=== PATIENT | female | born 1935 | race Caucasian/White ===

== ENCOUNTER 2016-08-30 21:49 | Emergency (ER) | payer OTHER ==
--- NOTE | 2016-08-30 22:05 | DIAGNOSTIC IMAGING REPORT ---
PROCEDURE: CT HEAD WITHOUT CONTRAST INDICATION: STROKE TECHNIQUE: Noncontrast axial images with sagittal and coronal reformations. COMPARISON: None. FINDINGS: There is evidence of mild to moderate old small vessel disease of the basal ganglia and white matter of the cerebral hemispheres. Brain and ventricles are otherwise normal. No evidence of an acute process or hemorrhage. Sinuses and mastoids are normal. IMPRESSION: 1. 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 2. Otherwise negative head CT. 3. Findings discussed with Dr. Tom Samayoa at [address] scans at this facility use dose modulation, iterative reconstruction, and/or weight-based dosing when appropriate to reduce radiation dose to as low as reasonably achievable.
--- NOTE | 2016-08-30 22:55 | ED ORDER SUMMARY ---
..... Patient: YAIMA SIMEON [facility] VisitID: [id number] [address] [place], [place] [id number] 80y, F Registration Date/Time: 08/30/2016 ORDER SHEET Weight: 75.7 kg (measured) Allergies: No Known Drug Allergy GENERAL ORDERS: CT Head wo Cont Urgent (21:52 08/30/2016 AMcQuoid ER Tech1 verbal order read back to Elliot OMALLEY) (Ack 21:53 AMcQuoid ER Tech1) (22:40 RFay) Chest 1V Urgent (:58 08/30/2016 Elliot OMALLEY) (Ack 22:00 AMcQuoid ER Tech1) (22:39 RFay) Retort Firer (Continuous) (:58 08/30/2016 Elliot OMALLEY) (Ack 21:59 AMcQuoid ER Tech1) (22:14 HSoule) CBC w Diff Urgent (21:58 08/30/2016 Elliot OMALLEY) (Ack 22:00 AMcQuoid ER Tech1) (0:49 HSoule) CMP Urgent (21:58 08/30/2016 Elliot OMALLEY) (Ack 22:00 AMcQuoid ER Tech1) (0:49 HSoule) UA-Culture if indicated Urgent (:58 08/30/2016 Elliot OMALLEY) (Ack 22:00 AMcQuoid ER Tech1) (0:49 HSoule) PT with INR Urgent (21:58 08/30/2016 Elliot OMALLEY) (Ack 22:00 AMcQuoid ER Tech1) (0:49 HSoule) PTT Urgent (:58 08/30/2016 Elliot OMALLEY) (Ack 22:00 AMcQuoid ER Tech1) (0:49 HSoule) D-Dimer Urgent (:58 08/30/2016 Elliot OMALLEY) (Ack 22:00 AMcQuoid ER Tech1) (0:49 HSoule) Amylase Urgent (21:08/30/2016 Elliot OMALLEY) (Ack 22:00 AMcQuoid ER Tech1) (0:49 HSoule) Lipase Urgent (:08/30/2016 Elliot OMALLEY) (Ack 22:00 AMcQuoid ER Tech1) (0:49 HSoule) BNP Urgent (21:58 08/30/2016 Elliot OMALLEY) (Ack 22:00 AMcQuoid ER Tech1) (0:49 HSoule) CPK Urgent (21:58 08/30/2016 Elliot OMALLEY) (Ack 22:00 AMcQuoid ER Tech1) (0:50 HSoule) Troponin-I Urgent (:58 08/30/2016 Elliot OMALLEY) (Ack 22:00 AMcQuoid ER Tech1) (0:49 HSoule) Oxygen (2 L/min) (NC) (21:58 08/30/2016 Elliot OMALLEY) (Ack 21:59 AMcQuoid ER Tech1) (22:14 HSoule) Pulse oximeter (:58 08/30/2016 Elliot OMALLEY) (Ack 21:59 AMcQuoid ER Tech1) (22:14 HSoule) EKG - ER Stat (:58 08/30/2016 Elliot OMALLEY) (Ack 22:00 AMcQuoid ER Tech1) (22:14 HSoule) MEDICATION ORDERS: IV FLUIDS: IV Saline Lock (:58 08/30/2016 Elliot OMALLEY) (22:14 HSoule) TPA Protocol (Stroke) 0.9 mg/kg (HIGH ALERT MEDICATION, NOW, Stroke 0.9 mg/kg, Bolus-10% of total dose given over 1min, Infusion-remaining 90% of total dose given over 59) (23:05 08/30/2016 Elliot OMALLEY) (23:10 HSoule) ORDER SHEET NOTES: [Electronically signed by Shannon Roman (00:50 08/31/2016)] [Electronically signed by Tom Samayoa MD (21:11 09/02/2016)] [Electronically locked/signed by Shannon Roman (00:50 08/31/2016)]
--- NOTE | 2016-08-30 22:55 | ED NURSING NOTES ---
Clinical Report - Nurses [facility] [address] [place] [address] 08/30/2016 21:51 Patient: YAIMA SIMEON TRIAGE Triage time 21:52 Aug 30 2016. Acuity: LEVEL 2. Chief Complaint: ALTERED MENTAL STATUS and (Fall). CHE COMA SCORE: [place] Coma Scale: 14- eyes open spontaneously (4); best verbal response- disoriented (4); best motor response- obeys commands (6). --21:55 Shannon Roman 22:02 08/30/16. BP: 173/77. HR: 67. RR: 22. O2 saturation: 95% on room air. Temp: 97.8 F (oral). Pain level now: cannot qualify. --22:05 Shannon Roman. Height/Length: 67 inches Per Patient. --22:02 Shannon Roman. Weight: 75.7 kg measured. BMI: 26.2. --22:05 Shannon Roman. Medications Metoprolol Tartrate Oral. --21:54 Shannon Roman Levothyroxine Sodium Oral. --21:54 Shannon Roman Lisinopril Oral. --21:55 Shannon Roman Cartia XT Oral. --21:55 Shannon Roman Losartan Potassium Oral. --22:11 Shannon Roman. Medication/allergy information source: EMS. --21:57 Shannon Roman. Allergies No Known Drug Allergy. --21:55 Shannon Roman. History Arrived by EMS. Historian: EMS and family. This started just prior to arrival. Patient was last known well (35 min ago). ( Patient family called EMS and reported the patient had an unwitnessed fall. Family reports patient is normally alert and oriented but that after the fall she became confused and had difficulty speaking.). --21:55 Shannon Roman Treatment INFECTION CONTROL PRACTITIONER: See EMS report. EMS treatment INFECTION CONTROL PRACTITIONER verbally communicated. See EMS report. Finger stick glucose performed (116). BP: 170 / 82. HR: 82. RR: 18. O2 saturation: 97 % room air. --21:57 Shannon Roman Primary physician (blanco). --21:57 Shannon Roman PAST MEDICAL HX: Immunizations: status is unknown. The patient is post-menopausal. SOCIAL HX: No drug use. No infectious disease exposure. ABUSE ASSESSMENT: No report of abuse. NUTRITIONAL RISK ASSESSMENT: The nutritional risk assessment revealed no deficiencies. FUNCTIONAL ASSESSMENT: Functional assessment: no impairments noted. LEARNING NEEDS ASSESSMENT: The learning needs assessment revealed no barriers. FALL RISK ASSESSMENT: Fall risk assessment completed. Risk factors identified include patient age greater than 65 years and impairment of cognition. Fall interventions initiated. Patient placed on stretcher. Side rails up x2. Brakes on Bed in low position. Patient visible from nurses' station. Family at bedside. Call light in reach of patient. Instructed not to get up without assistance. SKIN INTEGRITY ASSESSMENT: Skin integrity risk assessment completed. No skin integrity risk identified. --22:01 Shannon Roman SOCIAL HX: Never smoker. Occasional alcohol use. No drug use. No infectious disease exposure. ABUSE ASSESSMENT: No report of abuse. --22:02 Shannon Roman. PROBLEMS: Thyroid Disease. Hypertension. --21:56 Shannon Roman Atrial Fibrillation. --22:12 Shannon Roman. Interventions ID band on patient. To treatment room. --21:55 Shannon Roman. PHYSICAL ASSESSMENT To room via stretcher. Patient gowned. GENERAL / NEURO / PSYCH: Alert. The patient is disoriented to place and time. Patient's speech is abnormal (difficulty articulating, able to form one word responses). Patient appears neat and clean. RESPIRATORY: Respirations not labored. CVS: Normal sinus rhythm noted. GI / : Abdomen soft and nontender. SKIN: Skin is warm and dry. --22:07 Shannon Roman GENERAL / NEURO / PSYCH: [place] Com[place] Scale: 13- eyes open spontaneously (4); best verbal response- inappropriate speech (3); best motor response- obeys commands (6). Abnormal verbal response (expressive aphasia, dysarthria). HEENT: Pupils equal, round and reactive to light. --23:13 Shannon Roman 23:10 07/17/17. GENERAL / NEURO / PSYCH: Abnormal verbal response (inappropriate, expressive aphasia, dysarthria). Moves all extremities. No motor deficit. No sensory deficit. HEENT: Pupils equal, round and reactive to light. --00:49 JessieShannon schmitz. NURSING PROGRESS NOTES Patient transported to CT by stretcher with tech. (21:55 Aug 30 2016). --21:55 Shannon Roman Patient returned from CT by stretcher with tech. (:Aug 30 2016). --22:02 JessieJohn Paul schmitznah Patient gowned. Reassurance given to the patient and patient's family. Two patient identifiers checked. Call light placed in reach. Side rails up x 1. Bed placed in lowest position. Brakes of bed on. Patient ready for evaluation- chart flagged and ED physician notified. --22:02 JessieJohn PaulShannon <<STRICKEN ENTRY-- 22:08/30/2016 Site #1 started via IV in the right antecubital space with an 18g angiocath; one attempt. Blood drawn: rainbow set. Labeled in the presence of the patient and sent to the lab. Saline lock flushed with 10 mL saline. --22:07 JessieJohn PaulShannon --END STRIKE>> Correction. --22:08 JessieJohn PaulShannon 22:08/30/2016 Site #2 started via IV in the right antecubital space with an 20g angiocath, with aseptic technique; one attempt. Saline lock flushed with 10 mL saline. --22:08 JesseiJohn PaulShannon 22:08/30/2016 Site #1 started via IV in the left antecubital space with an 18g angiocath; one attempt. Blood drawn: rainbow set. Labeled in the presence of the patient and sent to the lab. Saline lock flushed with 10 mL saline. --22:08 Jessie Shannon 22:08 08/30/16. BP: 173/70. HR: 65. RR: 16. O2 saturation: 96% on nasal cannula at 2 liters/minute. --22:10 Shannon Roman ( Patient repeating words when she is asked questions. Writing RN asking patient if she is having difficulty finding the correct words, she states "yes".). --22:13 Shannon Roman Patient ID band checked for patient name and birthdate: patient confirmed. Blood samples drawn from the right antecubital space peripheral IV site with Vacutainer by nurse ; labeled in presence of the patient and sent to lab: rainbow set: cardiac enzymes (1st set). Additional blood sent to lab. Line flushed with 10 mL normal saline post blood draw. --22:14 Shannon Roman EKG time: (22:15 Aug 30 2016). EKG was ordered, performed by a tech and shown to the ED physician. --22:16 Shannon Roman ( Patient family and provider discussing plan of care.). --22:24 Shannon Roman 22:24 08/30/16. BP: 160/74. HR: 59. RR: 20. O2 saturation: 100% on room air. --22:25 Shannon Roman 22:27 08/30/16. BP: 157/63 taken on the right arm. HR: 62. RR: 18. O2 saturation: 98% on nasal cannula at 2 liters/minute. --22:28 Shannon Roman 22:52 08/30/16. BP: 161/70. HR: 68. RR: 20. O2 saturation: 100% on room air. --22:54 Shannon Roman ( Patient family and patient agreeable to TPA administration.). --22:55 Shannon Roman 23:00 08/30/16. BP: 154/68. HR: 75. RR: 18. O2 saturation: 100% on room air. --23:02 Shannon Roman <<STRICKEN ENTRY-- 23:03 08/30/2016 Started 68 mg of TPA Protocol (Stroke) IVPB in bag #1 68 mL; bolus of 6.8 mg over 1 minute(s) then at 61.2 mL/hr over 60 minute(s) via site #1 via IV pump. Allergies verified and confirmed 5 rights. IV patency established. IV site checked: no pain, redness, or swelling. IV flushed thoroughly pre- and post-medication administration. --23:10 Shannon Roman --END STRIKE>> Correction. --23:21 Shannon Roman 23:11 08/30/16. BP: 158/73. HR: 66. RR: 18. O2 saturation: 98% on nasal cannula at 2 liters/minute. --23:12 Shannon Roman RESPIRATORY: No respiratory distress. SKIN: Skin is warm and dry. --23:21 Shnanon Roman 23:03 08/30/2016 Started 68 mg of TPA Protocol (Stroke) IVPB in bag #1 68 mL; bolus of 6.8 mg over 1 minute(s) then at 61.2 mL/hr over 60 minute(s) via site #1 via IV pump. Allergies verified and confirmed 5 rights. IV patency established. IV site checked: no pain, redness, or swelling. IV flushed thoroughly pre- and post-medication administration (dosages verified by Wilder RN, Lima RN, dmitriy RN, and Provider Tom Samayoa). --23:21 Shannon Roman 23:21 08/30/16. BP: 161/70. HR: 72. RR: 20. O2 saturation: 98% on nasal cannula at 2 liters/minute. Temp: 98.3 F (oral). Pain level now: 0/10. --23:24 Shannon Roman 23:33 08/30/2016 Site #[address] upon transfer; flushes easily. --23:38 Shannon Roman 23:38 08/30/2016 TPA Protocol (Stroke) IVPB Continued: upon transfer at the rate of 60 mL/hr. 30 ml mL remaining bag #1. IV patency established. IV site checked: no pain, redness, or swelling. IV flushed thoroughly. --23:38 Shannon Roman. DISPOSITION / DISCHARGE 23:13 08/30/2016 Site #[address] upon transfer. Converted to saline lock and flushed with 10 mL saline; flushes easily. --23:13 Shannon Roman 23:14 08/30/16. Transferred to [facility]. Summary of care provided to transport team and transfer facility via paper and fax. Transported via helicopter by nurse and transport team with monitor, IV, O2 and emergency medications. Patient has no belongings. --23:14 Shannon Roman Report was given to a nurse at the bedside. Report included patient's care, treatment, medications, reviewed medication reconcilliation, and condition (including any recent changes or anticipated changes). All questions were answered. Report was acknowledged and care was transferred. (Tiny MANN). --23:36 Shannon Roman 23:36 08/30/16. BP: 156/70. HR: 75. RR: 20. O2 saturation: 99% on room air. --23:37 Shannon Roman 23:37 08/30/16. ( Patient family directed to meet patient at [facility] Patient has no belongings. --23:37 Shannon Roman Departure time: 23:42 Aug 30 2016. --23:42 Shannon Roman. Locked/Released at 08/31/2016 0:50 by Shannon Roman,
--- NOTE | 2016-08-30 22:55 | ED CLINICAL REPORT ---
Clinical Report - Physicians/Mid Levels [facility] [address] [place] [address] 08/30/2016 21:51 Patient: YAIMA SIMEON Time Seen: 21:52. Arrived- By ambulance. Historian- patient, EMS personnel and family. History limited by aphasia. Physical Exam limited by aphasia. HISTORY OF PRESENT ILLNESS Chief Complaint: WEAKNESS and IMPAIRED SPEECH. The patient has had severe difficulty with speech and a recent fall. This started just prior to arrival, patient was last known well (at 8 PM) and is still present. It was abrupt in onset and has been constant. At its maximum deficit described as severe. When seen in the E.D., described as severe. Usually is alert and oriented X3 and has normal mobility. REVIEW OF SYSTEMS Unobtainable. PAST HISTORY ( Primary physician (Dane)). Problems: Atrial Fibrillation. Thyroid Disease. Hypertension. Medications: Losartan Potassium Oral. Cartia XT Oral. Lisinopril Oral. Levothyroxine Sodium Oral. Metoprolol Tartrate Oral. Allergies: No Known Drug Allergy. SOCIAL HISTORY Smoker - current status unknown. FAMILY HISTORY Unable to obtain family medical history due to patient's unresponsiveness. ADDITIONAL NOTES The nursing notes have been reviewed. PHYSICAL EXAM Vital Signs: 08/30/2016 22:02 BP: 173/77. HR: 67. RR: 22. O2 saturation: 95%. Temp: 97.8 F. Have been reviewed. Appearance: Alert. Head: Head atraumatic. Eyes: Pupils equal, round and reactive to light. ENT: Airway intact. Pharynx normal. Neck: Normal inspection. Neck supple. No carotid bruit. CVS: Normal heart rate and rhythm. Heart sounds normal. Respiratory: No respiratory distress. Breath sounds normal. Abdomen: Soft and nontender. No organomegaly. Back: Normal inspection. Skin: Skin warm and dry. Normal skin color. No rash. Normal skin turgor. Extremities: Extremities exhibit normal ROM. No calf tenderness. No lower extremity edema. Neuro: Expressive aphasia. NIH Stroke Scale: score 12. Level of Consciousness: alert (0). LOC Questions: neither (2). LOC Commands: both (0). Best gaze: normal (0). Visual field loss: none (0). Facial palsy: minor (1). Motor arm: drift left arm (1). Motor leg: some effort against gravity right leg (2) and left leg (2). Limb ataxia: none (0). Sensory loss: none (0). Aphasia: severe (2). Dysarthria: severe (2). Extinction and inattention: none (0). LABS, X-RAYS, AND EKG EKG: LVH. Chest X-ray: No acute disease. The X-rays were independently viewed by me. CT Head: (IMPRESSION: 1. 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 2. Otherwise negative head CT.). The study was interpreted contemporaneously by me and discussed with the radiologist. Laboratory Tests: CBC w Diff: ([place]: 08/30/2016 22:05) ( [facility] 08/30/2016 22:25) Final results Test Result Flag Units (Reference) WHITE BLOOD COUNT 8.9 K/uL (4.5-11.5) RED BLOOD COUNT 4.27 M/uL (4.00-5.20) HEMOGLOBIN 13.8 gm/dL (12.0-16.0) HEMATOCRIT 41.2 % (36.0-46.0) MEAN CELL VOLUME 97 fL (80-100) MEAN CORPUSCULAR HGB 32 pg (26-34) MEAN CORPUSCULAR HGB CONC 34 g/dL (31-37) RED CELL DISTRIBUTION WIDTH 13.5 % (11.6-14.8) PLATELET COUNT 223 K/uL (150-400) NEUTROPHIL % 49.5 L % (50-75) LYMPH % 36.7 % (25-40) MONO % 11.0 % (3-14) EOSINOPHIL % 1.8 % (0-4) BASOPHIL % 1.0 % (0-2) PT with INR: ([place]: 08/30/2016 22:05) ( [facility] 08/30/2016 22:30) Final results Test Result Flag Units (Reference) INR 1.0 (0.8-1.2) Low Intensity Therapy: INR 1.5-2.0 PT range 18.5-23.1Mod.Intensity Therapy: INR 2.0-3.0 PT range 23.1-31.5High Intensity Therapy: INR 2.5-3.5 PT range 27.4-35.5High Intensity Therapy 2: INR 3.0-4.0 PT range 31.5-39.3 APTT 28 SECONDS (24-34) D-DIMER QUANTITATIVE 1.32 H ug/mLFEU (0.27-0.52) The primary value of this quantitative assay relates toits negative predictive value (i.e. exclusion) of pulmonaryembolism/deep vein thrombosis/DIC.Elevated levels of d-dimer may also occur with:, age, cancer, inflammation, liver disease,post-op, infection, hematoma, coronary disease, peripheralarteriopathy, bleeding disorders and thrombolytic treatment.Results should be correlated with other clinical andradiological data.Testing Methodology: Latex Immunoassay . PROGRESS AND PROCEDURES Critical care performed. Time includes: direct patient care, patient reassessment, coordination of patient care, interpretation of data (laboratory data, pulse oximetry and chest xrays), review of patient's medical records, medical consultation, family consultation regarding treatment decisions and documentation of patient care. Discussed case with health care provider (Rolo - Stroke Team at [facility] - He agrees that the patient is a good candidate for TPA). Reviewed test results and need for additional work-up. Agreed upon treatment plan and need for patient follow-up. Health care provider will see patient in hospital. Patient/family counseled. Old medical records reviewed. Disposition: Transferred. CLINICAL IMPRESSION Nontraumatic cerebrovascular accident. (Electronically signed by Tom Samayoa MD 09/02/2016 21:11)
--- NOTE | 2016-08-30 22:55 | ED ORDER SUMMARY ---
..... Patient: YAIMA SIMEON OrderSheet [facility] VisitID: [id number] [address], [place] [id number] 80y, F Registration Date/Time: 08/30/2016 ORDER SHEET Weight: 75.7 kg (measured) Allergies: No Known Drug Allergy GENERAL ORDERS: CT Head wo Cont Urgent (21:52 08/30/2016 AMcQuoid ER Tech1 verbal order read back to Elliot OMALLEY) (Ack 21:53 AMcQuoid ER Tech1) (22:40 RFay) Chest 1V Urgent (:58 08/30/2016 Elliot OMALLEY) (Ack 22:00 AMcQuoid ER Tech1) (22:39 RFay) Telecom Analyst (Continuous) (:58 08/30/2016 Elliot OMALLEY) (Ack 21:59 AMcQuoid ER Tech1) (22:14 HSoule) CBC w Diff Urgent (21:58 08/30/2016 Elliot OMALLEY) (Ack 22:00 AMcQuoid ER Tech1) (0:49 HSoule) CMP Urgent (21:58 08/30/2016 Elliot OMALLEY) (Ack 22:00 AMcQuoid ER Tech1) (0:49 HSoule) UA-Culture if indicated Urgent (:58 08/30/2016 Elliot OMALLEY) (Ack 22:00 AMcQuoid ER Tech1) (0:49 HSoule) PT with INR Urgent (21:58 08/30/2016 Elliot OMALLEY) (Ack 22:00 AMcQuoid ER Tech1) (0:49 HSoule) PTT Urgent (:58 08/30/2016 Elliot OMALLEY) (Ack 22:00 AMcQuoid ER Tech1) (0:49 HSoule) D-Dimer Urgent (:58 08/30/2016 Elilot OMALLEY) (Ack 22:00 AMcQuoid ER Tech1) (0:49 HSoule) Amylase Urgent (21:08/30/2016 Elliot OMALLEY) (Ack 22:00 AMcQuoid ER Tech1) (0:49 HSoule) Lipase Urgent (:08/30/2016 Elliot OMALLEY) (Ack 22:00 AMcQuoid ER Tech1) (0:49 HSoule) BNP Urgent (21:58 08/30/2016 Elliot OMALLEY) (Ack 22:00 AMcQuoid ER Tech1) (0:49 HSoule) CPK Urgent (21:58 08/30/2016 Elliot OMALLEY) (Ack 22:00 AMcQuoid ER Tech1) (0:50 HSoule) Troponin-I Urgent (:58 08/30/2016 Elliot OMALLEY) (Ack 22:00 AMcQuoid ER Tech1) (0:49 HSoule) Oxygen (2 L/min) (NC) (21:58 08/30/2016 Elliot OMALLEY) (Ack 21:59 AMcQuoid ER Tech1) (22:14 HSoule) Pulse oximeter (:58 08/30/2016 Elliot OMALLEY) (Ack 21:59 AMcQuoid ER Tech1) (22:14 HSoule) EKG - ER Stat (:58 08/30/2016 Elliot OMALLEY) (Ack 22:00 AMcQuoid ER Tech1) (22:14 HSoule) MEDICATION ORDERS: IV FLUIDS: IV Saline Lock (:58 08/30/2016 Elliot OMALLEY) (22:14 HSoule) TPA Protocol (Stroke) 0.9 mg/kg (HIGH ALERT MEDICATION, NOW, Stroke 0.9 mg/kg, Bolus-10% of total dose given over 1min, Infusion-remaining 90% of total dose given over 59) (23:05 08/30/2016 Elliot OMALLEY) (23:10 HSoule) ORDER SHEET NOTES: [Electronically signed by Shannon Roman (00:50 08/31/2016)] [Electronically signed by Tom Samayoa MD (21:11 09/02/2016)] [Electronically locked/signed by Shannon Roman (00:50 08/31/2016)]
--- NOTE | 2016-08-30 22:55 | ED CLINICAL REPORT ---
Clinical Report - Physicians/Mid Levels [facility] [address] [place] [address] 08/30/2016 21:51 Patient: YAIMA SIMEON Time Seen: 21:52. Arrived- By ambulance. Historian- patient, EMS personnel and family. History limited by aphasia. Physical Exam limited by aphasia. HISTORY OF PRESENT ILLNESS Chief Complaint: WEAKNESS and IMPAIRED SPEECH. The patient has had severe difficulty with speech and a recent fall. This started just prior to arrival, patient was last known well (at 8 PM) and is still present. It was abrupt in onset and has been constant. At its maximum deficit described as severe. When seen in the E.D., described as severe. Usually is alert and oriented X3 and has normal mobility. REVIEW OF SYSTEMS Unobtainable. PAST HISTORY ( Primary physician (Dane)). Problems: Atrial Fibrillation. Thyroid Disease. Hypertension. Medications: Losartan Potassium Oral. Cartia XT Oral. Lisinopril Oral. Levothyroxine Sodium Oral. Metoprolol Tartrate Oral. Allergies: No Known Drug Allergy. SOCIAL HISTORY Smoker - current status unknown. FAMILY HISTORY Unable to obtain family medical history due to patient's unresponsiveness. ADDITIONAL NOTES The nursing notes have been reviewed. PHYSICAL EXAM Vital Signs: 08/30/2016 22:02 BP: 173/77. HR: 67. RR: 22. O2 saturation: 95%. Temp: 97.8 F. Have been reviewed. Appearance: Alert. Head: Head atraumatic. Eyes: Pupils equal, round and reactive to light. ENT: Airway intact. Pharynx normal. Neck: Normal inspection. Neck supple. No carotid bruit. CVS: Normal heart rate and rhythm. Heart sounds normal. Respiratory: No respiratory distress. Breath sounds normal. Abdomen: Soft and nontender. No organomegaly. Back: Normal inspection. Skin: Skin warm and dry. Normal skin color. No rash. Normal skin turgor. Extremities: Extremities exhibit normal ROM. No calf tenderness. No lower extremity edema. Neuro: Expressive aphasia. NIH Stroke Scale: score 12. Level of Consciousness: alert (0). LOC Questions: neither (2). LOC Commands: both (0). Best gaze: normal (0). Visual field loss: none (0). Facial palsy: minor (1). Motor arm: drift left arm (1). Motor leg: some effort against gravity right leg (2) and left leg (2). Limb ataxia: none (0). Sensory loss: none (0). Aphasia: severe (2). Dysarthria: severe (2). Extinction and inattention: none (0). LABS, X-RAYS, AND EKG EKG: LVH. Chest X-ray: No acute disease. The X-rays were independently viewed by me. CT Head: (IMPRESSION: 1. 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 2. Otherwise negative head CT.). The study was interpreted contemporaneously by me and discussed with the radiologist. Laboratory Tests: CBC w Diff: ([place]: 08/30/2016 22:05) ( [facility] 08/30/2016 22:25) Final results Test Result Flag Units (Reference) WHITE BLOOD COUNT 8.9 K/uL (4.5-11.5) RED BLOOD COUNT 4.27 M/uL (4.00-5.20) HEMOGLOBIN 13.8 gm/dL (12.0-16.0) HEMATOCRIT 41.2 % (36.0-46.0) MEAN CELL VOLUME 97 fL (80-100) MEAN CORPUSCULAR HGB 32 pg (26-34) MEAN CORPUSCULAR HGB CONC 34 g/dL (31-37) RED CELL DISTRIBUTION WIDTH 13.5 % (11.6-14.8) PLATELET COUNT 223 K/uL (150-400) NEUTROPHIL % 49.5 L % (50-75) LYMPH % 36.7 % (25-40) MONO % 11.0 % (3-14) EOSINOPHIL % 1.8 % (0-4) BASOPHIL % 1.0 % (0-2) PT with INR: ([place]: 08/30/2016 22:05) ( [facility] 08/30/2016 22:30) Final results Test Result Flag Units (Reference) INR 1.0 (0.8-1.2) Low Intensity Therapy: INR 1.5-2.0 PT range 18.5-23.1Mod.Intensity Therapy: INR 2.0-3.0 PT range 23.1-31.5High Intensity Therapy: INR 2.5-3.5 PT range 27.4-35.5High Intensity Therapy 2: INR 3.0-4.0 PT range 31.5-39.3 APTT 28 SECONDS (24-34) D-DIMER QUANTITATIVE 1.32 H ug/mLFEU (0.27-0.52) The primary value of this quantitative assay relates toits negative predictive value (i.e. exclusion) of pulmonaryembolism/deep vein thrombosis/DIC.Elevated levels of d-dimer may also occur with:, age, cancer, inflammation, liver disease,post-op, infection, hematoma, coronary disease, peripheralarteriopathy, bleeding disorders and thrombolytic treatment.Results should be correlated with other clinical andradiological data.Testing Methodology: Latex Immunoassay . PROGRESS AND PROCEDURES Critical care performed. Time includes: direct patient care, patient reassessment, coordination of patient care, interpretation of data (laboratory data, pulse oximetry and chest xrays), review of patient's medical records, medical consultation, family consultation regarding treatment decisions and documentation of patient care. Discussed case with health care provider (Rolo - Stroke Team at [facility] - He agrees that the patient is a good candidate for TPA). Reviewed test results and need for additional work-up. Agreed upon treatment plan and need for patient follow-up. Health care provider will see patient in hospital. Patient/family counseled. Old medical records reviewed. Disposition: Transferred. CLINICAL IMPRESSION Nontraumatic cerebrovascular accident. (Electronically signed by Tom Samayoa MD 09/02/2016 21:11)
--- NOTE | 2016-08-30 23:29 | DIAGNOSTIC IMAGING REPORT ---
PROCEDURE: XR CHEST 1 VIEW INDICATION: CVA TECHNIQUE: Portable AP view (2230 hours) COMPARISON: None. FINDINGS: Allowing for suboptimal inspiration, lungs are clear. Heart and mediastinum are normal. Thorax is normal. IMPRESSION: 1. Negative chest.
--- NOTE | 2016-09-02 21:11 | ED MED RECONCILIATION SUMMARY ---
Patient: YAIMA SIMEON Medication Reconciliation Report [facility] VisitID: [id number] [address] [place] [address] 80y, F Registration Date/Time: 08/30/2016 Weight: 75.7 kg Height/Length: 67 in. BMI: 26.2 ALLERGIES: No Known Drug Allergy The patient's Home Medications are listed below: THE FOLLOWING MEDICATIONS NEED TO BE RECONCILED: Cartia XT Oral Levothyroxine Sodium Oral Lisinopril Oral Losartan Potassium Oral Metoprolol Tartrate Oral The source(s) of the original Home Medication information: EMS The following Medications were given to the patient in the Emergency Department: TPA Protocol (Stroke) IVPB bolus 6.8 mg over 1 minute(s), then 68 mg 61.2 mL/hr, administered: 08/30/2016 11:03:00 PM The following Medications were prescribed to the patient: None.
--- NOTE | 2016-09-02 21:11 | ED MAR SUMMARY ---
..... Medication Administration Record [facility] [address] [place] [address] Patient: YAIMA SIMEON Visit ID: [id number] 80y, F Weight: 75.7 kg Height/Length: 67 in BMI: 26.2 ALLERGIES: No Known Drug Allergy Start 23:03 08/30/2016 Shannon Roman,, Continued Upon Transfer 23:38 08/30/2016 Shannon Roman, Medication Administered: TPA PROTOCOL (STROKE), Dose: 68 mg IVPB over 60 minute(s), Rate: 61.2 mL/hr, Bolus: 6.8 mg over 1 minute(s), Dispensed: 68 mL bag, Site: #1 left AC. Medication Ordered: TPA Protocol (Stroke) 0.9 mg/kg (HIGH ALERT MEDICATION, NOW, Stroke 0.9 mg/kg, Bolus-10% of total dose given over 1min, Infusion-remaining 90% of total dose given over 59).
--- NOTE | 2016-09-02 21:11 | ED DISCHARGE INSTRUCTIONS ---
Patient: YAIMA SIMEON General Instructions [facility] VisitID: [id number] [address] [place] [address] 80y, F Registration Date/Time: 08/30/2016 Nontraumatic cerebrovascular accident. (Electronically signed by Tom Samayoa MD 09/02/2016 21:11)
--- NOTE | 2016-09-02 21:11 | ED DISCHARGE INSTRUCTIONS ---
Patient: YAIMA SIMEON General Instructions [facility] VisitID: [id number] [address] [place] [address] 80y, F Registration Date/Time: 08/30/2016 Nontraumatic cerebrovascular accident. (Electronically signed by Tom Samayoa MD 09/02/2016 21:11)
--- NOTE | 2016-09-02 21:11 | ED MAR SUMMARY ---
..... Medication Administration Record [facility] [address] [place] [address] Patient: YAIMA SIMEON Visit ID: [id number] 80y, F Weight: 75.7 kg Height/Length: 67 in BMI: 26.2 ALLERGIES: No Known Drug Allergy Start 23:03 08/30/2016 Shannon Roman,, Continued Upon Transfer 23:38 08/30/2016 Shannon Roman, Medication Administered: TPA PROTOCOL (STROKE), Dose: 68 mg IVPB over 60 minute(s), Rate: 61.2 mL/hr, Bolus: 6.8 mg over 1 minute(s), Dispensed: 68 mL bag, Site: #1 left AC. Medication Ordered: TPA Protocol (Stroke) 0.9 mg/kg (HIGH ALERT MEDICATION, NOW, Stroke 0.9 mg/kg, Bolus-10% of total dose given over 1min, Infusion-remaining 90% of total dose given over 59).
--- NOTE | 2016-09-02 21:11 | ED MED RECONCILIATION SUMMARY ---
Patient: YAIMA SIMEON Medication Reconciliation Report [facility] VisitID: [id number] [address] [place] [address] 80y, F Registration Date/Time: 08/30/2016 Weight: 75.7 kg Height/Length: 67 in. BMI: 26.2 ALLERGIES: No Known Drug Allergy The patient's Home Medications are listed below: THE FOLLOWING MEDICATIONS NEED TO BE RECONCILED: Cartia XT Oral Levothyroxine Sodium Oral Lisinopril Oral Losartan Potassium Oral Metoprolol Tartrate Oral The source(s) of the original Home Medication information: EMS The following Medications were given to the patient in the Emergency Department: TPA Protocol (Stroke) IVPB bolus 6.8 mg over 1 minute(s), then 68 mg 61.2 mL/hr, administered: 08/30/2016 11:03:00 PM The following Medications were prescribed to the patient: None.
== END 2016-08-30 23:42 | disposition short-term general hospital (02) ==
LOC: ED SRH 21:49
DX: I63.9 Cerebral infarction, unspecified (principal); I10 Essential (primary) hypertension; Z79.899 Other long term (current) drug therapy
CPT/HCPCS: 90004; 90100; 90616; 91320; 91556; 92235; 92530; 92610; 94001; 94060; 95059